=== PATIENT | female | born 1975 | race Caucasian/White ===

== ENCOUNTER 2023-01-10 12:40 | Emergency (ER) | payer MEDICARE, MEDICAID ==
[2023-01-10] MEDS ORDERED: DEXAMETHASONE 10 MG/ML VIAL IM STA (13:03)
[2023-01-10] MEDS ORDERED: FAMOTIDINE 20 MG TABLET PO STA (13:04)
[2023-01-10] MEDS ORDERED: diphenhydrAMINE INJ 50 MG/ML VIAL IM STA (13:04)
[2023-01-10 14:06] VITALS: BP 149/103
--- NOTE | 2023-01-10 14:33 | ED Physician Documentation ---
History of Present Illness - Stated complaint Stated Complaint: ALLERGIC REACTION / BEE STING - Chief complaint Chief Complaint: Allergic Rx - History obtained from History obtained from: Patient - Additonal information Additional information: The patient comes to the emergency department chief complaint of allergic reaction to bee sting. She states that she has a history of anaphylaxis with bee stings and accidentally disturbed a nest. She was stung several times around her extremities and face and began to notice that her face and tongue were swelling up. She took a dose of her EpiPen and has felt relief since. However, she still does have some mild swelling of the face and tongue. She does have a history of seizure disorder after a Traumatic brain injury some years ago and did have a seizure after taking epi. She states that has never happened before. She denies any recent head injuries. No other seizure triggers recently. She has been able to take her medications as usual. No other complaints at this time. PD PAST MEDICAL HISTORY - Present Medications Home Medications: Ambulatory Orders Medication Instructions Recorded Confirmed predniSONE [Deltasone] 60 mg PO DAILY 5 Days #15 tablet 01/10/23 - Allergies Allergies/Adverse Reactions: Allergies Allergy/AdvReac Type Severity Reaction Status Date / Time amoxicillin Allergy Hives Verified 01/10/23 12:49 cephalexin [From Keflex] Allergy Hives Verified 01/10/23 12:49 Penicillins AdvReac Unknown Verified 01/10/23 12:48 PD ED PE NORMAL - Vitals Vital signs reviewed: Yes - General General: Alert and oriented X 3, No acute distress, Well developed/nourished - HEENT HEENT: Atraumatic, PERRL, EOMI, Moist mucous membranes, Other (Mild facial and tongue swelling without pharyngeal edema.) - Neck Neck: Supple, no meningeal sign - Cardiac Cardiac: RRR, No murmur - Respiratory Respiratory: No respiratory distress, Clear bilaterally, Other (No stridor) - Abdomen Abdomen: Soft, Non tender, Non distended - Derm Derm: Warm and dry, Other (Scattered stings noted with small radii of mild erythema and edema.) - Extremities Extremities: No deformity - Neuro Neuro: Alert and oriented X 3 - Psych Psych: Normal mood, Normal affect Results - Vitals Vitals: Vital Signs - 24 hr 01/10/23 01/10/23 01/10/23 12:49 13:54 14:03 Temperature 36.4 C L Heart Rate 78 75 73 Respiratory 18 16 18 Rate Blood Pressure 137/85 H 154/97 H 149/103 H O2 Saturation 100 99 100 Oxygen O2 Source Room air PD Medical Decision Making - ED course Complexity details: considered differential, d/w patient ED course: The patient was treated in the emergency department with IM Decadron, IM Benadryl and PO Pepcid. She was observed in the emergency department for nearly 2 hours and on reevaluation reported feeling much better. I felt the patient was stable for discharge home. I have sent in a prescription for Steroids to the pharmacy of the patient's choice and she already has Benadryl at home. We have discussed the usual indications for return. Departure - Departure Disposition: Home, Self Care Clinical Impression: Bee sting reaction Qualifiers: Encounter type: initial encounter Injury intent: accidental or unintentional Qualified Code(s): T63.441A - Toxic effect of venom of bees, accidental (unintentional), initial encounter Anaphylaxis Qualifiers: Encounter type: initial encounter Qualified Code(s): T78.2XXA - Anaphylactic shock, unspecified, initial encounter Condition: Stable Instructions: ED Bite Sting Insect Gen Allergic React Prescriptions: predniSONE [Deltasone] 60 mg PO DAILY 5 Days #15 tablet Comments: You have responded well to medication today. Your prescription has been electronically transmitted to the [facility] pharmacy in [place]. Please clam picker your steroids there so that you can have them on hand in case your allergic reaction flares up again. If you develop any swelling of your tongue or throat, or any difficulty breathing, please return to the emergency department immediately.
== END 2023-01-10 14:58 | disposition home or self-care (01) ==
LOC: ED 12:40
DX: T63.441A Toxic effect of venom of bees, accidental (unintentional), initial encounter (principal); T78.2XXA Anaphylactic shock, unspecified, initial encounter
CPT/HCPCS: 96372; 99283; 99284; A9270; J1200